=== PATIENT | male | born 1960 | race African-American/Black ===

== ENCOUNTER 2018-11-24 15:23 | Emergency (ER) | payer MEDICAID, OTHER ==
[~2018-11-24] VITALS: Ht 180.3 cm; Wt 100.0 kg
[2018-11-24 15:27] VITALS: BP 147/91
== END 2018-11-24 15:59 | disposition left against medical advice (07) ==
LOC: ER 15:23
DX: M79.605 Pain in left leg (principal); M79.604 Pain in right leg; Z53.21 Procedure and treatment not carried out due to patient leaving prior to being seen by health care provider